=== PATIENT | female | born 1955 | race Caucasian/White ===

== ENCOUNTER 2016-10-30 14:30 | Inpatient (IN) | payer MEDICARE, OTHER ==
[~2016-10-30] VITALS: Ht 165.1 cm; Wt 111.4 kg
[~2016-10-30 14:30] MED LIST: DEXI60CA PO; DICL1GEL7 TOPICAL; FURO1TAB60 PO; HYDR-3516 PO; LEVO150T7 PO; LOMO2.5T PO; METO50TA11 PO; NORC5TAB PO; VESI10TA PO; ZOCO20TA PO
[2016-10-30] MEDS ORDERED: VANCOMYCIN INJ 1,000 MG in SODIUM CHLOR 0.9% 250 ML INJ 250 ML IV ONE (15:45)
[2016-10-30] MEDS ORDERED: Vancomycin Consult Pharmacy 1 EA OTHER SCH (15:45)
[2016-10-30 16:00] VITALS: BP 131/81; PULSE 84; RESP 17; TEMP 97.6; O2SAT 95
[2016-10-30] MEDS ORDERED: LEVOFLOXACIN 750 MG PREMIX INJ 150 ML IV SCH (16:00)
[2016-10-30] MEDS: metroNIDAZOLE 500 MG INJ 100 ML IV SCH (17:52)
[2016-10-30 17:57] LABS: AUTOMATED NEUTROPHIL # 4.7 TH/MM3 (1.8-7.7); BASOPHIL # 0.1 TH/MM3 (0-0.2); BASOPHIL % 1.1 % (0.0-2.0); EOSINOPHIL # 0.2 TH/MM3 (0-0.4); EOSINOPHIL % 2.1 % (0.0-4.0); HEMATOCRIT 44.5 % (35.0-46.0); LYMPH % 39.6 % (9.0-44.0); LYMPHOCYTE # 3.8 TH/MM3 (1.0-4.8); MEAN CELL VOLUME 81.3 FL (80.0-100.0); MEAN CORPUSCULAR HEMOGLOBIN 26.1 PG (27.0-34.0); MEAN CORPUSCULAR HGB CONC 32.1 % (32.0-36.0); MONO % 7.6 % (0.0-8.0); NEUT % 49.6 % (16.0-70.0); PLATELET COUNT 265 TH/MM3 (150-450); RED BLOOD COUNT 5.48 MIL/MM3 (4.00-5.30); RED CELL DISTRIBUTION WIDTH 13.9 % (11.6-17.2); WHITE BLOOD COUNT 9.5 TH/MM3 (4.0-11.0)
[2016-10-30 18:02] LABS: HEMO FLAGS AUTO DIFF
[2016-10-30 18:22] LABS: ALKALINE PHOSPHATASE 129 U/L (45-117); ALT (GPT) 30 U/L (10-53); ANION GAP 9 MEQ/L (5-15); AST (GOT) 24 U/L (15-37); BICARBONATE 27.4 MEQ/L (21.0-32.0); BLOOD UREA NITROGEN 12 MG/DL (7-18); CHLORIDE 104 MEQ/L (98-107); GLOMERULAR FILTRATION RATE 65 ML/MIN (>89); SODIUM (NA) 140 MEQ/L (136-145); TOTAL BILIRUBIN ADULT 0.6 MG/DL (0.2-1.0)
[2016-10-30 18:24] LABS: POTASSIUM 3.9 MEQ/L (3.5-5.1)
[2016-10-30 18:58] LABS: PLATELET ESTIMATE SMEAR NORMAL (NORMAL); PLATELET MORPHOLOGY NORMAL (NORMAL); SCAN/DIFF AUTO DIFF CONFIRMED
[2016-10-30] MEDS ORDERED: VANCOMYCIN INJ 1,750 MG in SODIUM CHLORID 0.9% 500 ML INJ 500 ML IV ONE (19:00)
[2016-10-30 20:00] VITALS: BP 130/65; PULSE 82; RESP 20; TEMP 98; O2SAT 96
[2016-10-30] MEDS ORDERED: ACETAMINOPHEN/HYDROcodone 325 MG/5 MG TAB PO PRN (20:00)
[2016-10-30] MEDS ORDERED: DIPHENOXYLATE/ATROPINE 2.5 MG/0.025 MG TAB PO PRN (20:00)
[2016-10-30] MEDS ORDERED: PILL SPLITTER OTHER PRN (20:45)
[2016-10-30] MEDS: PANTOPRAZOLE SOD 40 MG DELAYED RELEASE TAB PO SCH (23:16)
[2016-10-31] VITALS: BP 129/70; PULSE 79; RESP 20; TEMP 97.9; O2SAT 95
[2016-10-31] MEDS: metroNIDAZOLE 500 MG INJ 100 ML IV SCH ×2 (00:58→10:08)
[2016-10-31] MEDS ORDERED: LEVOTHYROXINE SODIUM 150 MCG TAB PO SCH (06:00)
[2016-10-31 08:39] VITALS: BP 107/62; PULSE 79; RESP 20; TEMP 95.7; O2SAT 95
--- NOTE | 2016-10-31 08:41 | MH ---
cc: DYLAN GIVENS DATE OF ADMISSION: 10/30/2016 ADMITTING DIAGNOSIS Osteomyelitis of the right fourth metacarpal status post dog bite. HISTORY OF PRESENT ILLNESS This 61-year-old white female, well-known to the undersigned physician, was bitten by her own dog on October 08, 2016 while trying to break up a fight between two of her dogs. She sustained an injury to the left third finger which consisted of amputation of the very distal tuft of the finger from a dog bite and multiple puncture wounds to both hands. The patient had quite a bit of bleeding and was seen at the emergency department at [facility] in [place], [place]. The patient had x-ray done of the right hand and she was told verbally that there was no fracture. She had her wounds dressed and was sent home with a prescription for clindamycin for seven days. The patient left town to attend a [facility] in [place] for seven days. Upon her return she made an appointment with the undersigned physician and was seen in the undersigned physician's office approximately a week ago. At that time there was persistent edema of the overlying MP joints of the right hand. The patient had reduced range of motion of the right fourth finger at the MP joint and there was concern about injury to the joint or tendinous injury. The patient at that time had discomfort in the area but no erythema. She had no fever, chills, night sweats, nausea, vomiting. She had some GI upset from the clindamycin but it resolved when she completed the antibiotics. Her left third finger was healing well with local wound care. The patient's tetanus status was up-to-date with immunization. Her last TDAP received was on July 18, 2014. An MRI of the right hand was ordered and due to some scheduling difficulties was not performed until today. PAST MEDICAL HISTORY 1. Migraine headaches. 2. Hyperlipidemia. 3. Irritable bowel syndrome. 4. Gastroesophageal reflux disease. 5. Hiatal hernia. 6. Lumbar disc disease with recurrent low back pain and lumbar radiculitis. 7. Tubulovillous polyp of the colon in March 2010. She has a colonoscopy performed every 3 years. 8. Non-insulin dependent diabetes which is currently diet controlled. 9. Depression. 10.Vertigo. 11.Allergic rhinitis. 12.Postsurgical hypothyroidism. 13.History of atrial fibrillation. The patient was on anticoagulation with a novel oral anticoagulant, however, she developed rectal bleeding so it was discontinued. She has refused anticoagulation since then. PAST SURGICAL HISTORY 1. Repair of incarcerated ventral hernia in 2010. 2. Thyroid biopsy in 2004. She had a multinodular goiter and subsequent thyroidectomy in 2012. The pathology was benign. 3. Status post cholecystectomy. 4. She has undergone a cardiac catheterization within the last several years and had no significant coronary disease. MEDICATIONS Her current medications include: 1. Potassium chloride ER 20 mEq daily. 2. Diclofenac gel 1%, apply 4 grams to the affected joints three times a day. 3. Simvastatin 20 mg daily. 4. Metoprolol succinate ER 75 mg daily. 5. Furosemide 40 mg daily as needed for edema. 6. Vesicare 10 mg daily. 7. Hydrocodone/acetaminophen 5/325 mg, one tablet every 6 hours as needed for pain. 8. Dexilant 60 mg daily. 9. Lomotil 1-2 tablets three times a day as needed for diarrhea. 10.Levothyroxine 150 mcg, one tablet daily. ALLERGIES 1. PENICILLIN. 2. AMPICILLIN. 3. ERYTHROMYCIN. FAMILY HISTORY Noncontributory. SOCIAL HISTORY She is . She lives with a significant other. She does not smoke nor did she ever. She drinks alcohol on a social basis. She currently is employed in a [employer] center. REVIEW OF SYSTEMS Negative except as outlined above. PHYSICAL EXAMINATION VITAL SIGNS: Upon arrival to the floor blood pressure was 131/81, heart rate 84, respirations 17, temperature 97.6 degrees Fahrenheit. Oxygen saturation on room air was 95%. GENERAL: In general this is a morbidly obese middle-aged white female lying in bed in no acute distress. HEENT: Pupils are equal, round and reactive to light. Extraocular movements intact. Sclera anicteric. Nares patent without discharge. Mouth and throat clear with moist mucous membranes. No erythema or exudates. NECK: Neck is supple without lymphadenopathy, JVD, bruits or thyromegaly. CARDIOVASCULAR: Regular rate and rhythm without murmurs, rubs or gallops. LUNGS: Clear to auscultation without wheezes, rhonchi or rales. ABDOMEN: Obese, soft, nontender, nondistended. Bowel sounds are present. Further palpation is difficult due to the patient's obesity. No costovertebral angle tenderness. AND RECTAL: Deferred. EXTREMITIES: The bilateral lower extremities reveal no appreciable edema. 2+ pulses. No calf tenderness. No Homans sign. No open areas or bony deformities. The right hand reveals edema overlying the second, third, fourth and fifth MP joints. There is tenderness to palpation overlying the fourth MP joint. There are several healing puncture wounds with no significant erythema or increased warmth. There is reduced range of motion with flexion of the fourth finger and reduced extension. The other fingers have full range of motion. Distal perfusion is intact. The left hand reveals full range of motion. The third finger has a dressing in place. NEUROLOGIC: Nonfocal. LABORATORY DATA The patient's white blood count is 9.5, hemoglobin 14.3, hematocrit 44.5, platelet count 265,000. The sedimentation rate is only 22. A comprehensive metabolic profile was significant for a random glucose of 125. CRP was elevated at 1.6. The alkaline phosphatase was elevated at 129. BUN and creatinine are normal at 12 and 0.88. IMAGING DATA MRI of the right hand performed at [facility] earlier today reveals fracture of the neck and head region of the fourth metacarpal and it does appear to have focal intraarticular involvement. There are inflammatory changes of the bone and within the joint and correlation for possible osteomyelitis or septic arthropathy is needed. If the patient does have osteomyelitis nearly the entire fourth metacarpal is probably involved. There was no tendon tear. IMPRESSION AND PLAN 1. This 61-year-old white female is status post dog bite to the right hand. She has a fracture of the distal fourth metacarpal which was likely related to the bite. The patient now has findings on MRI highly suspicious for osteomyelitis. I have admitted the patient to a medical/surgical bed and have spoken with Dr. Iyer for hand surgery and Dr. Brissa Jackson for infectious disease. Dr. Jackson has recommended a combination of metronidazole, vancomycin and Levaquin for IV antibiotic coverage. I have consulted the pharmacy to manage the patient's vancomycin dosing. Dr. Iyer and Dr. Jackson will see the patient in the morning and assist with further evaluation and treatment. Blood cultures pending at this time. I have discussed with the patient that she will need prolonged antibiotic therapy whether it be IV or oral is to be decided. At this point will defer any surgical treatment to Dr. Iyer. 2. History of atrial fibrillation. The patient appears to be in sinus rhythm at this time. She has declined anticoagulation due to her recent rectal bleeding. 3. History of post-surgical hypothyroidism. Continue with levothyroxine at the current dosage. The patient had a TSH drawn this morning on an outpatient basis. Will follow-up the TSH and adjust levothyroxine dosage as needed. 4. History of GERD and hiatal hernia. Continue with PPI. Will need to change to pantoprazole which is formulary in the hospital. 5. Hypertension. Will resume patient's metoprolol and follow blood pressure and heart rate. 6. Lumbar disc disease. The patient is currently asymptomatic. Will provide hydrocodone/APAP, for her to use as needed. 7. Irritable bowel syndrome, currently asymptomatic. Provide antidiarrheal if needed. 8. Will make further recommendations pending review of the consultations from Infectious Disease and hand surgery. MD DORIS Oliva/INGRID /7:47 PM /8:15 AM
[2016-10-31] MEDS ORDERED: TOLTERODINE TARTRATE 4 MG CAP LA PO SCH (09:00)
[2016-10-31] MEDS ORDERED: PRAVASTATIN SOD 40 MG TAB PO SCH (09:00)
[2016-10-31] MEDS ORDERED: METOPROLOL SUCCINATE 50 MG EXTENDED RELEASE TAB PO SCH (09:00)
[2016-10-31] MEDS: PANTOPRAZOLE SOD 40 MG DELAYED RELEASE TAB PO SCH (10:10)
--- NOTE | 2016-10-31 10:59 | RADRPT ---
EXAM DATE/TIME: 10/31/2016 10:38 [facility] COMPARISON: No previous studies available for comparison. INDICATIONS : Inflammation, dog bite. MEDICAL HISTORY : diabetes SURGICAL HISTORY : None. ENCOUNTER: Initial ACUITY: 3 weeks PAIN SCORE: 0/10 LOCATION: Right hand FINDINGS: Three view examination of the right hand demonstrates no soft tissue swelling, dislocation, or fractu re. The carpal bones appear intact. The interphalangeal and metacarpophalangeal joints are intact. Bony mineralization is normal. CONCLUSION: Negative for radiopaque foreign body or fracture. Toni Mena MD FACR on October 31, 2016 at 10:56 Board Certified Radiologist. This report was verified electronically.
[2016-10-31] MEDS ORDERED: VANCOMYCIN INJ 1,250 MG in SODIUM CHLOR 0.9% 250 ML INJ 250 ML IV SCH (11:00)
[2016-10-31 12:00] VITALS: BP 128/84; PULSE 67; RESP 22; TEMP 97; O2SAT 97
--- NOTE | 2016-10-31 13:29 | PD.ID.CON ---
History of Present Illness Service ID Consult Requested By Dr Robert Reason for Consult R hand osteo Primary Care Physician Slava Robert MD Diagnoses: History of Present Illness 61 yo female wo significant past med hx sustained a dog bite to her R hand and L middle finger 3 weeks ago while breaking up her dogs fight She was seen ER ; got clindamycin x 7 days and healed her wounds completely in the R hand and alsmost completely to her L MF However she presented to her PCP office co pain and swellling in the R hand MRI was done at [facility] and osteo involving 4 th head was suspected She was admitted and starte empirically on Levaquin, flagyl and vanco She is anaphilactically allergic to PCN, unaware of prior Keflex use she is up to date on her tetanus dogs are up to date on rabies (per pt report) and stay well since the incident She is afebrile with nl WBC Review of Systems Except as stated in HPI: all other systems reviewed are Neg Past Family Social History Allergies: Coded Allergies: Ampicillin (Verified Allergy, Severe, STOPPED BREATHING, 07/22/16) Erythromycin (Verified Allergy, Severe, CAN'T BREATHE, 07/22/16) Fluticasone (Verified Allergy, Severe, ANAPHYLACTIC, 07/22/16) Penicillin (Verified Allergy, Severe, STOPPED BREATHING, 07/22/16) Active Ordered Medications Medications where reviewed in EMR Antibiotics Include: Levaquin, flagyl and vanco Family History Non-Contributory. Social History never Tobacco. social ETOH. No Illicit Drugs. Physical Exam Vital Signs Vital Signs Date Time Temp Pulse Resp B/P Pulse Ox O2 Delivery O2 Flow Rate FiO2 10/31/16 08:39 95.7 79 20 107/62 95 10/31/16 00:00 97.9 79 20 129/70 95 10/30/16 20:00 98.0 82 20 130/65 96 10/30/16 16:00 97.6 84 17 131/81 95 Physical Exam CONSTITUTIONAL/GENERAL: This is a morbidly obese female patient, in no apparent distress. SKIN: No jaundice, rashes, or lesions.Skin temperature appropriate. Not diaphoretic. HEAD: Atraumatic. Normocephalic. EYES: Pupils equal and round and reactive. Extraocular motions intact. No scleral icterus. No injection or drainage. Fundi not examined. ENT: Hearing grossly normal. Nose without bleeding or purulent drainage. oral mucosae moist, no lesions NECK: Trachea midline. Supple, nontender. No palpable thyroid enlargement or nodularity. CARDIOVASCULAR: Regular rate and rhythm without murmurs, gallops, or rubs. No JVD. Peripheral pulses symmetric. RESPIRATORY/CHEST: Symmetric, unlabored respirations. Clear to auscultation. Breath sounds equal bilaterally. No wheezes, rales, or rhonchi. GASTROINTESTINAL: Abdomen soft, non-tender, nondistended. No hepato-splenomegaly , or palpable masses. No guarding. Bowel sounds present. GENITOURINARY: Without palpable bladder distension. MUSCULOSKELETAL: Extremities without clubbing, cyanosis, No joint tenderness or effusion noted. No calf tenderness. No mottling or clubbing. STATUS LOCALIS: R hand with completely healed bite novoa on dorsum of the hand she has no erythema full range of motion mild tenderness to palpation mild edema over 4th MC head no drainge LMF with some swelling, healing bite wounds, no redness, no open wounds LYMPHATICS: No palpable cervical or supraclavicular adenopathy. NEUROLOGICAL: Awake and alert. Motor and sensory grossly within normal limits. Follows commands. Normal speech Moves all extremities. PSYCHIATRIC: No obvious anxiety/depression. no apparent hallucinations or other psychotic thought process. Laboratory Laboratory Tests Test 10/30/16 10/30/16 17:38 18:47 White Blood Count 9.5 Red Blood Count 5.48 Hemoglobin 14.3 Hematocrit 44.5 Mean Corpuscular Volume 81.3 Mean Corpuscular Hemoglobin 26.1 Mean Corpuscular Hemoglobin 32.1 Concent Red Cell Distribution Width 13.9 Platelet Count 265 Mean Platelet Volume 9.0 Neutrophils (%) (Auto) 49.6 Lymphocytes (%) (Auto) 39.6 Monocytes (%) (Auto) 7.6 Eosinophils (%) (Auto) 2.1 Basophils (%) (Auto) 1.1 Neutrophils # (Auto) 4.7 Lymphocytes # (Auto) 3.8 Monocytes # (Auto) 0.7 Eosinophils # (Auto) 0.2 Basophils # (Auto) 0.1 CBC Comment AUTO DIFF Differential Comment AUTO DIFF CONFIRMED Platelet Estimate NORMAL Platelet Morphology Comment NORMAL Sodium Level 140 Potassium Level 3.9 Chloride Level 104 Carbon Dioxide Level 27.4 Anion Gap 9 Blood Urea Nitrogen 12 Creatinine 0.88 Estimat Glomerular Filtration 65 Rate Random Glucose 125 Calcium Level 9.0 Total Bilirubin 0.6 Aspartate Amino Transf 24 (AST/SGOT) Alanine Aminotransferase 30 (ALT/SGPT) Alkaline Phosphatase 129 C-Reactive Protein 1.60 Total Protein 7.7 Albumin 3.8 Erythrocyte Sedimentation Rate 22 Date/Time Procedure Status Source Growth 10/30/16 17:38 Aerobic Blood Culture - Preliminary Resulted Blood Peripheral NO GROWTH IN 1 DAY 10/30/16 17:38 Anaerobic Blood Culture - Final Resulted Blood Peripheral QNS - SEE AEROBE REPORT Result Diagram: 10/30/16 1738 10/30/168 Imaging R hand Xray showed 4 TH MC distal fracture, healing : lanre Gutierres R hand MRI from y showed 4 TH MC distal subacute fracture, healing; Osteo unlikely : lanre Gutierres Assessment and Plan Assessment and Plan Suspected osteomyelitis R hand 4 th metatrrsal following dog bite: - clinically and radiologically not favouring osteo, but rather healing subacute fracture - dc abx - Tx fracture as per Dr Parrish recommendation - If pt cont to have any problem (worsening swelling, redness, developping a draining wound etc) would recommend to obtain culture prior to abx use to confirm dx of osteo Discussed Condition With Nenita Leslie Blum Crossman, Alexandra A. MD Oct 31, 2016 13:29
--- NOTE | 2016-10-31 13:41 | MB ---
cc: ANDREY GIBBS III, M.D. DATE OF CONSULTATION 10/31/2016 REASON FOR CONSULTATION The patient is a very friendly 61-year-old white female who was bitten by her own dog on October 08, 2016 while trying to break up a fight between two of the three dogs. She sustained injury to her left third finger which is a healed finger tip amputation. She was also bitten on the right hand. She was initially seen in the Hospital in [place] where she was told she had no fracture. She saw her primary care doctor, Dr. Robert a week ago and there was noted swelling in her right hand. She had an MRI done promptly which revealed erosion, edema, and a fracture of the fourth metacarpal. X-rays today were done that appeared to clearly show osteomyelitis and bony erosion in the neck of the fourth metacarpal. She was admitted for IV antibiotics and definitive treatment. PAST MEDICAL HISTORY 1. Migraine headaches 2. Hyperlipidemia 3. Irritable bowel syndrome 4. GERD 5. Hiatal hernia 6. Lower back pain 7. [id number] diabetes 8. Depression 9. Vertigo 10. Allergic rhinitis 11 Hypothyroidism 12. Atrial fibrillation currently not on anticoagulation PAST SURGICAL HISTORY 1. Incarcerated ventral hernia repair 2. Thyroid biopsy 3. Thyroidectomy 4. Cholecystectomy 5. Cardiac catheterizations MEDICATIONS AT HOME 1. Potassium chloride 2. Diclofenac gel 3. Simvastatin 4. Metoprolol 5. Lasix 6. Vesicare 7. Pain medicine 8. Dexilant 9. Lomotil 10. Levothyroxine ALLERGIES PENICILLIN, AMPICILLIN AND ERYTHROMYCIN. FAMILY HISTORY Noncontributory SOCIAL HISTORY She was with her significant other. She does not smoke. REVIEW OF SYSTEMS Patient denies any headaches, blurry or double vision. She is not complaining of any coughing, wheezing or shortness breath. She is not complaining of any nausea, vomiting or abdominal pain. She is not complaining of any night sweats, fevers or chills. She is not complaining of any burning, frequency or urgency with urination. She is not complaining of any skin lesions, rashes or eruptions. She is not complaining of any anxiety, depression or suicidal ideations. IMAGING X-rays in [facility] performed and reviewed today reveal she has fracture and some erosion of the fourth metacarpal neck. Overall alignment if it is fractured is intact, but it does look to extend into the joint. LABORATORY STUDIES Laboratory studies were performed and reveal a white blood cell count 9.5 thousand, H&H 14.3 and 44.5, platelet count 265, BUN and creatinine 12 and 0.88. C-reactive protein is high at 1.60. PHYSICAL EXAMINATION She is well-developed, well-nourished in no apparent distress very pleasant. She is awake, alert and oriented lying in her bed. VITAL SIGNS: Temperature is 95.7, pulse 79, respiratory rate 20, blood pressure 107/62. EXTREMITIES: Examination of the right hand reveals a full active range of motion. Slight extension lag of the fourth finger at the MP joint. There is tenderness over the fourth metacarpal head. There is minimal edema and no erythema. There is a healed puncture wound. All musculotendinous units appear intact. There is no malangulation or malrotation. She is able to make a full fist as well. She has a palpable radial pulse. No epitrochlear or axillary adenopathy. The left middle finger tips is healing well from apparent tip avulsion and there is no evidence of any open wound. PLAN My recommendation is for a splint for right hand as well as for antibiotics to be decided by infectious disease. If infectious disease would like a bone biopsy, we will proceed with this in the middle part of next week. The patient can be seen as an outpatient to have this done if she is discharged over the weekend, otherwise if she will be here through the next week, we will get this done on Thursday or . I discussed this with the patient and his significant other and they understand and agree and wish to proceed. MD SONI Vasquez III/GAGAN /12:52 PM /1:23 PM
--- NOTE | 2016-10-31 15:18 | HHI.PR ---
Subjective Remarks I have spoken with Dr Jackson, ID, and she is questioning diagnosis of osteomyelitis. There is a fourth metacarpal head fracture but she feels that MRI findings and Clincal presentation do not favor osteomyelitis. She recommended Discontinuing all antibiotics and following patient as outpatient. Patient still has discomfort but less since splint in place. Afebrile. Vitals stable. PO intake good. Current Medications Medications (Trade) Dose Ordered Sig/Alonso Route Start Time Stop Time Status Last Admin Metronidazole 100 ml @ 100 mls/hr Q8H IV 10/30/16 17:00 10/31/16 10:08 (Vancomycin Consult Pharmacy) 0 ml @ 0 mls/hr UNSCH OTHER 10/30/16 15:45 Miscellaneous Information SPECIFIC LAB TO BE ... ONCE ONCE XX 11/01/16 10:45 11/01/16 10:46 (Lomotil Tab) 1 tab TID PRN PO 10/30/16 20:00 ([place] 5-325 Mg) 1 tab Q6H PRN PO 10/30/16 20:00 (Synthroid) 150 mcg DAILY@06 PO 10/31/16 06:00 10/31/16 06:10 (Toprol Xl) 75 mg DAILY PO 10/31/16 09:00 10/31/16 10:10 (Pravachol) 40 mg DAILY PO 10/31/16 09:00 10/31/16 10:11 (Detrol La) 4 mg DAILY PO 10/31/16 09:00 10/31/16 10:11 (Protonix) 40 mg DAILY PO 10/30/16 21:00 10/31/16 10:10 Miscellaneous 1 ea 1 ea UNSCH PRN OTHER 10/30/16 20:45 (Vancomycin Inj/ NS 250 ml Inj) 262.5 ml @ 250 mls/hr Q12H IV 10/31/16 11:00 10/31/16 12:03 (Levaquin) 750 mg Q24H PO 10/31/16 16:00 Objective Vital Signs Date Time Temp Pulse Resp B/P Pulse Ox O2 Delivery O2 Flow Rate FiO2 10/31/16 12:00 97.0 67 22 128/84 97 10/31/16 08:39 95.7 79 20 107/62 95 10/31/16 00:00 97.9 79 20 129/70 95 10/30/16 20:00 98.0 82 20 130/65 96 10/30/16 16:00 97.6 84 17 131/81 95 I/O 10/30/16 10/30/16 10/30/16 10/31/16 10/31/16 10/31/16 07:00 15:00 23:00 07:00 15:00 23:00 Intake Total 960 ml 720 ml Balance 960 ml 720 ml Intake Oral 960 ml 720 ml # Voids 1 4 CV: RRR Lungs: CTA Splint on RUE Result Diagram: 10/30/16 1738 10/30/16 1738 Other Results Laboratory Tests Test 10/30/16 10/30/16 17:38 18:47 White Blood Count 9.5 TH/MM3 Red Blood Count 5.48 MIL/MM3 Hemoglobin 14.3 GM/DL Hematocrit 44.5 % Mean Corpuscular Volume 81.3 FL Mean Corpuscular Hemoglobin 26.1 PG Mean Corpuscular Hemoglobin 32.1 % Concent Red Cell Distribution Width 13.9 % Platelet Count 265 TH/MM3 Mean Platelet Volume 9.0 FL Neutrophils (%) (Auto) 49.6 % Lymphocytes (%) (Auto) 39.6 % Monocytes (%) (Auto) 7.6 % Eosinophils (%) (Auto) 2.1 % Basophils (%) (Auto) 1.1 % Neutrophils # (Auto) 4.7 TH/MM3 Lymphocytes # (Auto) 3.8 TH/MM3 Monocytes # (Auto) 0.7 TH/MM3 Eosinophils # (Auto) 0.2 TH/MM3 Basophils # (Auto) 0.1 TH/MM3 CBC Comment AUTO DIFF Differential Comment AUTO DIFF CONFIRMED Platelet Estimate NORMAL Platelet Morphology Comment NORMAL Sodium Level 140 MEQ/L Potassium Level 3.9 MEQ/L Chloride Level 104 MEQ/L Carbon Dioxide Level 27.4 MEQ/L Anion Gap 9 MEQ/L Blood Urea Nitrogen 12 MG/DL Creatinine 0.88 MG/DL Estimat Glomerular Filtration 65 ML/MIN Rate Random Glucose 125 MG/DL Calcium Level 9.0 MG/DL Total Bilirubin 0.6 MG/DL Aspartate Amino Transf 24 U/L (AST/SGOT) Alanine Aminotransferase 30 U/L (ALT/SGPT) Alkaline Phosphatase 129 U/L C-Reactive Protein 1.60 MG/DL Total Protein 7.7 GM/DL Albumin 3.8 GM/DL Erythrocyte Sedimentation Rate 22 mm/hr Microbiology Date/Time Procedure Status Source Growth 10/30/16 17:38 Aerobic Blood Culture - Preliminary Resulted Blood Peripheral NO GROWTH IN 1 DAY 10/30/16 17:38 Anaerobic Blood Culture - Final Resulted Blood Peripheral QNS - SEE AEROBE REPORT Assessment and Plan Problem List: (1) Osteomyelitis of left hand Status: Acute Plan: I have spoken with the patient and discussed options. Since the diagnosis is not definitive, I do not want to have the patient on penitentiary antibiotics nor do I believe that proceeding with a bone biopsy at this time is indicated. We discussed risk and benefits of conservative and more aggressive treatment options. The patient agrees with a more conservative plan. I will discharge her home today without antibiotics. She will have repeat CRP and Sed rate next week and see Eileen Parrish in his office for follow up. If sed rate and crp rise then bone biopsy is indicated. If they decrease then no treatment other than for fracture. She will call me if there is increased pain in right hand, erythema, drainage from wound, fever or chills. Discharge Planning Home today Problem Qualifiers (1) Osteomyelitis of left hand: Qualified Code: M86.9 - Osteomyelitis of left hand, unspecified type Slava Robert MD Oct 31, 2016 15:18
[2016-10-31] MEDS ORDERED: LEVOFLOXACIN 750 MG TAB PO SCH (16:00)
[2016-11-01] MEDS ORDERED: PHARMACY ORDERED LAB XX ONE (10:45)
== END 2016-10-31 16:10 | disposition home or self-care (01) | DRG 563 ==
LOC: N07B 15:30
PROVIDERS: ADMIT Family Medicine; ATTEND Family Medicine
DX: S62.334A Displaced fracture of neck of fourth metacarpal bone, right hand, initial encounter for closed fracture (principal); E66.01 Morbid (severe) obesity due to excess calories; I10 Essential (primary) hypertension; I48.91 Unspecified atrial fibrillation; G43.909 Migraine, unspecified, not intractable, without status migrainosus; E89.0 Postprocedural hypothyroidism; K21.9 Gastro-esophageal reflux disease without esophagitis; K44.9 Diaphragmatic hernia without obstruction or gangrene; M51.9 Unspecified thoracic, thoracolumbar and lumbosacral intervertebral disc disorder; K58.9 Irritable bowel syndrome, unspecified; Z88.0 Allergy status to penicillin; E78.5 Hyperlipidemia, unspecified; M54.5 Low back pain; J30.9 Allergic rhinitis, unspecified; R42 Dizziness and giddiness; F32.9 Major depressive disorder, single episode, unspecified; E11.9 Type 2 diabetes mellitus without complications; W54.0XXA Bitten by dog, initial encounter; Y92.099 Unspecified place in other non-institutional residence as the place of occurrence of the external cause
CPT/HCPCS: 73130; 76937; 80053; 85025; 85652; 86140; 87040; J1956; J3370; J7040; J7050

== ENCOUNTER → 2017-06-25 | Day surgery (SDC) | payer OTHER ==
[~2017-06-25] VITALS: Ht 165.1 cm; Wt 111.4 kg
[~2017-06-25] MED LIST changes: +BUPIVACAINE HCL PF 0.5% 30 ML VIAL ONE; +CHLORHEXIDINE GLUCONATE 2 % 1 PACK (2 CLOTHS) TOPICAL PRN; +CIPROFLOXACIN/DEXT 400 MG/200 ML IV PRN; +DEXI30CA2 PO; -DEXI60CA PO; +DICL1GEL TOPICAL; +FAMOTIDINE 20 MG/2 ML VIAL ONE; -HYDR-3516 PO; +INSULIN HUMAN REGULAR 1,000 UNITS/10 ML VIAL SQ PRN; +KETAMINE HCL 500 MG/10 ML VIAL ONE; +LACTATED RINGER'S 1000 ML IV PRN; +LIDOCAINE HCL 2% 50 ML VIAL ONE; +LOMO PO; +METO1TAB9 PO; -METO50TA11 PO; +METOPROLOL TARTRATE 25 MG TAB PO PRN; +MIDAZOLAM HCL 2 MG/2 ML VIAL ONE; +NEOMYCIN/POLYMYXIN 1 ML G.U. IRRIGANT ONE; +POVIDONE IODINE 5% (ANTISEPSIS KIT) 4 APPLICATIONS EACH NARE PRN; +SODIUM CHLORID 0.9% 500 ML IV PRN; -VESI10TA PO; +VESI10TA2 PO
[2017-06-25 14:15] VITALS: BP 107/57; PULSE 61; RESP 14; TEMP 97.6; O2SAT 94
--- NOTE | 2017-06-26 08:28 | MP ---
cc: MARLO IYER III, M.D. DATE OF SURGERY 06/25/2017 PREOPERATIVE DIAGNOSIS Right hand mass. PROCEDURE Right hand mass excisional biopsy. SURGEON Marlo Iyer III, MD PROCEDURE The patient was brought to the operating room, placed supine on the operating table. After the correct site and side of surgery were verified by members of each team in the room multiple times including the patient and myself and after adequate preop markings, preoperative written consent was verified by everyone and after adequate preoperative time-out was performed to everyone's satisfaction and after adequate IV sedation had been achieved, the right upper was prepped and draped in the traditional sterile surgical fashion. A 50/50 mixture of my usual anesthetic was injected around mass. The limb was exsanguinated with an Javier wrap and a highly placed well-padded axillary tourniquet was inflated to 200 mmHg for a total of seven minutes. An elliptical incision within the skin in Luis's line was made and carried down through skin and subcutaneous tissue. The mass was excised, it was collection and did have a white pasty content of a small amount which was expressed postoperatively. There were no other anatomic abnormalities. It was nonadherent to any deep tissues. A thorough irrigation was performed with saline. The skin edges were reapproximated using interrupted 4-0 nylon suture. The hand and arm were thoroughly cleansed and dried. Betadine Adaptic dressing was applied on top of the wound followed by a bulky soft dressing. The axillary tourniquet was released. The hand and all the fingers became immediately soft, pink, warm and had brisk capillary refill of less than two seconds. The patient was awakened from anesthesia and transported to the post anesthesia care unit awake and in stable condition at the end of the case. The sponge, needle and instrument counts were correct at the end of the case as reported by nurses in the room. MD SONI Vasquez III/GAGAN /2:44 PM /8:13 AM
== END | disposition home or self-care (01) ==
LOC: PHSDC 09:36
PROVIDERS: ATTEND Orthopaedic Surgery Hand Surgery
DX: R22.31 Localized swelling, mass and lump, right upper limb (principal); L72.0 Epidermal cyst
CPT/HCPCS: 01840; 26115; 88304; J0744; J2250; J3010; J7120; 88305